=== PATIENT | female | born 1985 | race Caucasian/White ===

== ENCOUNTER 2019-01-27 19:25 | Emergency (ER) | payer OTHER ==
[~2019-01-27] VITALS: Ht 172.7 cm; Wt 62.2 kg
[2019-01-27 19:28] VITALS: BP 133/48
--- NOTE | 2019-01-27 19:45 | NUR ---
PT C/O SINUS INFECTION X3 MONTHS WITH THREE ROUNDS OF ABX. PT STATES SX ARE INTERMITTENT.
== END 2019-01-27 21:12 | disposition home or self-care (01) ==
LOC: ED 21:00
DX: J34.89 Other specified disorders of nose and nasal sinuses (principal); R51 Headache
CPT/HCPCS: 70450; 99284